=== PATIENT | female | born 1970 | race Caucasian/White ===

== ENCOUNTER 2017-02-10 20:51 | Emergency (ER) | payer OTHER ==
[2017-02-10 20:51] VITALS: BMI 22.9
[2017-02-10 21:04] VITALS: BP 125/81; PULSE 93; RESP 20; TEMP 100.1; O2SAT 96
[2017-02-10] MEDS ORDERED: Amoxicillin-Clav 875-125 mg Tab PO STA (22:22)
[2017-02-10] MEDS ORDERED: Oxycodone/Acetaminophen 5/325 mg Tab PO STA (22:26)
[2017-02-10] MEDS ORDERED: Ciprofloxacin 0.3% OPTH SOLN OD STA (22:33)
[2017-02-10] MEDS ORDERED: Amoxicillin-Clav 875-125 mg Tab PO ONE (22:35)
[2017-02-10] MEDS ORDERED: Oxycodone/Acetaminophen 5/325 mg Tab ONE (22:35)
--- NOTE | 2017-02-10 22:53 | C.PDOC ---
History Of Present Illness 46 y/o female presents to the ER c/o cold symptoms for 4 days. Today patient notes pain, swelling, and discharge to the left eye. Patient denies ear pain, abdominal pain, fever, chills, visual changes, rash, or any other complaints. Time Seen by Provider: 02/10/17 21:59 Chief Complaint (Nursing): ENT Problem History Per: Patient History/Exam Limitations: no limitations Onset/Duration Of Symptoms: Days (4) Current Symptoms Are (Timing): Still Present Injury To Eye?: No Severity: Mild Associated Symptoms: Pain, Swelling, Discharge From Eye. denies: Decreased Vision Recent travel outside of the [place]: No Additional History Per: Patient Past Medical History Reviewed: Historical Data, Nursing Documentation, Vital Signs Vital Signs: Last Vital Signs Temp 100.1 F H 02/10/17 21:00 Pulse 93 H 02/10/17 21:00 Resp 20 02/10/17 21:00 BP 125/81 02/10/17 21:00 Pulse Ox 96 02/10/17 23:09 - Medical History PMH: Rheumatoid Arthritis (taking enbrel weekly) Denies: Chronic Kidney Disease Family History: States: Unknown Family Hx - Social History Hx Alcohol Use: Yes Hx Substance Use: No Review Of Systems Except As Marked, All Systems Reviewed And Found Negative. Constitutional: Negative for: Fever, Chills Eyes: Positive for: Pain, Other (Left eye swelling and discharge). Negative for : Vision Change ENT: Positive for: Nose Congestion, Throat Pain. Negative for: Ear Pain Gastrointestinal: Negative for: Abdominal Pain Skin: Negative for: Rash Physical Exam - Physical Exam Appears: Non-toxic, No Acute Distress Skin: Warm, Dry, No Rash Head: Atraumatic, Normacephalic Eye(s): right: Normal Inspection, left: Other (Swelling of the upper and lower eye lids. Yellow discharge. Erythema and swelling of the conjunctiva) Ear(s): Bilateral: Normal Oral Mucosa: Moist Throat: Erythema, No Exudate, No Drooling Neck: Normal, Normal ROM, Supple Cardiovascular: Rhythm Regular Respiratory: Normal Breath Sounds, No Rales, No Rhonchi, No Wheezing Gastrointestinal/Abdominal: Soft, No Tenderness Extremity: Normal ROM Neurological/Psych: Oriented x3, Normal Speech, Normal Cognition, Normal Cranial Nerves ED Course And Treatment O2 Sat by Pulse Oximetry: 96 (RA) Pulse Ox Interpretation: Normal Progress Note: Impression: 46 y/o female c/o cold symptoms for 4 days. Plans: Augmentin PO, Percocet, Cipro eye drops to the left eye, Reassess. Patient is in no acute distress at this time. Patient is afebrile and was instructed to follow up with opthamologist tomorrow for further evaluation of the eye and to return if symptoms worsens. Disposition - Disposition Referrals: Charly Almonte MD [Staff Provider] - Gregorio Agarwal MD [Staff Provider] - Disposition: HOME/ ROUTINE Disposition Time: 22:50 Condition: STABLE Additional Instructions: Follow up with [facility] within 1-2 days. Return to ED immediately if feel worse. Prescriptions: Amoxicillin/Clavulanate [Augmentin 875 MG-125 MG] 1 tab PO BID #20 tab oxyCODONE/Acetaminophen [Percocet 5/325 mg Tab] 1 tab PO QID PRN #20 tab PRN Reason: Pain Ondansetron [Zofran Odt] 1 - 2 tab PO .Q4-6H PRN #20 odt PRN Reason: Nausea/Vomiting Instructions: Pharyngitis (ED), Conjunctivitis (ED) Forms: [employer] (Nauruan) - Clinical Impression Clinical Impression: Conjunctivitis, Pharyngitis - Scribe Statement The provider has reviewed the documentation as recorded by the Scribe Arun [email or web address] All medical record entries made by the Scribe were at my direction and personally dictated by me. I have reviewed the chart and agree that the record accurately reflects my personal performance of the history, physical exam, medical decision making, and the department course for this patient. I have also personally directed, reviewed, and agree with the discharge instructions and disposition.
== END 2017-02-10 23:01 | disposition home or self-care (01) ==
LOC: C.ER 20:51
DX: H10.9 Unspecified conjunctivitis (principal); J02.9 Acute pharyngitis, unspecified